=== PATIENT | male | born 1935 | race Caucasian/White ===

== ENCOUNTER 2018-08-01 08:35 | Emergency (ER) | payer MEDICARE ==
[2018-08-01 08:52] VITALS: BP 129/77
--- NOTE | 2018-08-01 09:35 | ED ---
GI/ HPI - HPI Summary HPI Summary: 82 yr old male with the complaint of low abdominal cramps that come and go, but are totally relieved with diarrhea. He has not seen blood. He states that he has had about 4 episodes of diarrhea, watery, and mattson in color for the past four days. He denies fever, chills, feeling ill. He feels fine otherwise. He has no cramps or pain at this point. No antibiotic use in past couple months. No travel. Last colonoscopy he states was about five years ago and it was ok per the patient, no polyps or tumors found. - History of Current Complaint Chief Complaint: UCGI Time Seen by Provider: 08/01/18 09:04 Stated Complaint: DIARRHEA, STOMACH CRAMPS Pain Intensity: 0 - Allergy/Home Medications Allergies/Adverse Reactions: Allergies Allergy/AdvReac Type Severity Reaction Status Date / Time No Known Allergies Allergy Verified 08/01/18 08:47 PMH/Surg Hx/FS Hx/Imm Hx Endocrine/Hematology History: Denies: Hx Diabetes, Hx Systemic Lupus Erythematosus Cardiovascular History: Reports: Hx Hypertension Denies: Hx Congestive Heart Failure History: Denies: Hx Dialysis, Hx Renal Disease Musculoskeletal History: Denies: Hx Rheumatoid Arthritis - Cancer History Hx Chemotherapy: No - Surgical History Surgery Procedure, Year, and Place: Right Knee Replacement Infectious Disease History: No Infectious Disease History: Denies: Traveled Outside the [place] in Last 30 Days - Family History Known Family History: Positive: None - Social History Occupation: Works From/At Home Alcohol Use: None Substance Use Type: Reports: None Smoking Status (MU): Former Smoker Review of Systems Constitutional: Negative Positive: Diarrhea All Other Systems Reviewed And Are Negative: Yes Physical Exam Triage Information Reviewed: Yes Vital Signs On Initial Exam: Initial Vitals Temp Pulse Resp BP Pulse Ox 98.9 F 78 16 129/77 98 08/01/18 08:49 08/01/18 08:49 08/01/18 08:49 08/01/18 08:49 08/01/18 08:49 Vital Signs Reviewed: Yes Appearance: Positive: Well-Appearing, No Pain Distress Skin: Positive: Warm Head/Face: Positive: Normal Head/Face Inspection Eyes: Positive: EOMI ENT: Positive: Pharynx normal Neck: Positive: Nontender Respiratory/Lung Sounds: Positive: Clear to Auscultation, Breath Sounds Present Cardiovascular: Positive: RRR. Negative: Murmur Abdomen Description: Positive: Nontender, Soft Musculoskeletal: Positive: Strength/ROM Intact Neurological: Positive: Sensory/Motor Intact, Alert, Oriented to Person Place, Time, CN Intact II-III Psychiatric: Positive: Normal - Mason Coma Scale Best Eye Response: 4 - Spontaneous Best Motor Response: 6 - Obeys Commands Best Verbal Response: 5 - Oriented Coma Scale Total: 15 Diagnostics - Vital Signs Vital Signs Temp Pulse Resp BP Pulse Ox 08/01/18 08:49 98.9 F 78 16 129/77 98 - Laboratory Lab Statement: Any lab studies that have been ordered have been reviewed, and results considered in the medical decision making process. GIGU Course/Dx - Course Course Of Treatment: 82 yr old male with diarrhea four days. Heme neg on test. Stool culture and cdiff sent. OK home follow upwith pmd. To ER for any persistent abdominal pain - Diagnoses Provider Diagnoses: Diarrhea Discharge - Sign-Out/Discharge Documenting (check all that apply): Patient Departure All imaging exams completed and their final reports reviewed: No Studies - Discharge Plan Condition: Good Disposition: HOME Patient Education Materials: Acute Diarrhea (ED) Referrals: Joshua Duran MD [Primary Care Provider] - 2 Days - Billing Disposition and Condition Condition: GOOD Disposition: Home
== END 2018-08-01 10:05 | disposition home or self-care (01) ==
LOC: UCCORT 08:35
DX: R19.7 Diarrhea, unspecified (principal); R10.30 Lower abdominal pain, unspecified; Z87.891 Personal history of nicotine dependence; Z96.651 Presence of right artificial knee joint
CPT/HCPCS: 82270; 87045; 87046; 87077; 87899; 99211; G0463

== ENCOUNTER 2019-01-12 08:37 | Emergency (ER) | payer MEDICARE ==
--- NOTE | 2019-01-12 08:52 | UC ---
Ear Complaint HPI - HPI Summary HPI Summary: decrease hearing---has pressure and ringing in right ear--no fevers, sore throat slight nasal drainage - History of Current Complaint Chief Complaint: UCEar Stated Complaint: RT EAR COMPLAINT Time Seen by Provider: 01/12/19 08:39 Hx Obtained From: Patient Onset/Duration: Gradual Onset, Lasting Days Severity Initially: Mild Severity Currently: Mild Aggravating Factors: Nothing Alleviating Factors: Nothing Associated Signs/Symptoms: Positive: Hearing Loss - Allergies/Home Medications Allergies/Adverse Reactions: Allergies Allergy/AdvReac Type Severity Reaction Status Date / Time No Known Allergies Allergy Verified 01/12/19 08:43 PMH/Surg Hx/FS Hx/Imm Hx Endocrine History: Dyslipidemia Cardiovascular History: Hypertension GI/ History: Gastroesophageal Reflux - Surgical History Surgical History: Yes Surgery Procedure, Year, and Place: Right Knee Replacement - Family History Known Family History: Positive: None - Social History Occupation: Retired Lives: With Family Alcohol Use: None Substance Use Type: None Smoking Status (MU): Former Smoker When Did the Patient Quit Smoking/Using Tobacco: 20 years ago Review of Systems All Other Systems Reviewed And Are Negative: Yes Constitutional: Positive: Negative Skin: Positive: Negative Eyes: Positive: Negative ENT: Positive: Ear Ache, Nasal Discharge Respiratory: Positive: Negative Cardiovascular: Positive: Negative Gastrointestinal: Positive: Negative Genitourinary: Positive: Negative Motor: Positive: Negative Neurovascular: Positive: Negative Musculoskeletal: Positive: Negative Neurological: Positive: Negative Psychological: Positive: Negative Is Patient Immunocompromised?: No Physical Exam Triage Information Reviewed: Yes Appearance: Well-Appearing, No Pain Distress, Well-Nourished Vital Signs Reviewed: Yes Eye Exam: Normal Eyes: Positive: Conjunctiva Clear ENT Exam: Normal ENT: Positive: Normal ENT inspection, Hearing grossly normal, Pharynx normal, Uvula midline, Other - both TM occluded. Negative: Nasal congestion, Nasal drainage, Tonsillar swelling, Trismus, Muffled voice, Hoarse voice, Dental tenderness, Sinus tenderness Dental Exam: Normal Neck exam: Normal Neck: Positive: Supple, Nontender, No Lymphadenopathy Respiratory Exam: Normal Respiratory: Positive: Chest non-tender, No respiratory distress, No accessory muscle use Cardiovascular Exam: Normal Cardiovascular: Positive: RRR, Pulses Normal, Brisk Capillary Refill Musculoskeletal Exam: Normal Musculoskeletal: Positive: Strength Intact, ROM Intact, No Edema Neurological Exam: Normal Neurological: Positive: Alert, Muscle Tone Normal Psychological Exam: Normal Skin Exam: Normal Re-Evaluation - Re-Evaluation First Eval Change: Improved - large amount of cerumen removed from both ears---patient reports relief for symptoms-- Ear Complaint Course/Dx - Course Course Of Treatment: avoid q-tips and soap in ears follow with pcp rpn - Differential Dx/Diagnosis Provider Diagnosis: Bilateral impacted cerumen Discharge - Sign-Out/Discharge Documenting (check all that apply): Patient Departure All imaging exams completed and their final reports reviewed: No Studies - Discharge Plan Condition: Stable Disposition: HOME Patient Education Materials: Cerumen Impaction (ED) Referrals: Joshua Duran MD [Primary Care Provider] - If Needed - Billing Disposition and Condition Condition: STABLE Disposition: Home - Attestation Statements Provider Attestation: I was available for consult. This patient was seen by the [facility]. The patient was not presented to , seen by or examined by ca -Jaz Machuca MD
[2019-01-12 08:53] VITALS: BP 143/72
== END 2019-01-12 10:10 | disposition home or self-care (01) ==
LOC: UCCORT 08:37
DX: H61.23 Impacted cerumen, bilateral (principal); I10 Essential (primary) hypertension
CPT/HCPCS: 99213; G0463

== ENCOUNTER 2019-01-22 14:02 | Emergency (ER) | payer MEDICARE ==
[2019-01-22 15:27] VITALS: BP 124/70
--- NOTE | 2019-01-22 15:43 | UC ---
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 Abdominal cramping too. No blood in stool. Has been taking immodium OTC with no releif. Appetite poor, pt states anything goes in comes right out. Fluids staying down ok. No recent abx." -he was here in Jul w/ similar sx x 4 days w/ cramping. no f/c/. no travel. doesnt recall last colonscopy but thinks he is UTD. Per Jul OV note, he had scope ~ 5 yr prior w/o any polyps or tumors. he says this sounds about right. no abx. no raw or uncooked seafood or meat. no sick contacts. brown in color - History Of Current Complaint Chief Complaint: UCGI Stated Complaint: DIARRHEA Time Seen by Provider: 01/22/19 15:36 Pain Intensity: 0 - Allergies/Home medications Allergies/Adverse Reactions: Allergies Allergy/AdvReac Type Severity Reaction Status Date / Time No Known Allergies Allergy Verified 01/22/19 15:26 Home Medications: Home Medications Flecainide TAB* [Tambocor TAB*] 100 mg PO BID 01/22/19 [History] Metoprolol Tartrate TAB* [Lopressor TAB*] 12.5 mg PO BID 01/22/19 [History Confirmed 01/22/19] Vit A/Vit C/Vit E/Zinc/Copper [Preservision Areds Softgel] 1 each PO BID [History Confirmed 01/22/19] PMH/Surg Hx/FS Hx/Imm Hx Previously Healthy: Yes Endocrine History: Dyslipidemia Cardiovascular History: Hypertension - Surgical History Surgical History: Yes Surgery Procedure, Year, and Place: Right Knee Replacement - Family History Known Family History: Positive: Hypertension - Social History Alcohol Use: None Substance Use Type: None Smoking Status (MU): Former Smoker Have You Smoked in the Last Year: No When Did the Patient Quit Smoking/Using Tobacco: 20 years ago Review of Systems All Other Systems Reviewed And Are Negative: Yes Constitutional: Positive: Negative. Negative: Fever, Chills, Fatigue Skin: Positive: Negative Eyes: Positive: Negative ENT: Positive: Negative Respiratory: Positive: Negative Cardiovascular: Positive: Negative Gastrointestinal: Positive: Abdominal Pain, Diarrhea. Negative: Vomiting, Nausea Genitourinary: Positive: Negative Motor: Positive: Negative Neurovascular: Positive: Negative Musculoskeletal: Positive: Negative Neurological: Positive: Negative Psychological: Positive: Negative Is Patient Immunocompromised?: No Physical Exam Triage Information Reviewed: Yes Appearance: Well-Appearing, No Pain Distress, Well-Nourished - very pleasant Vital Signs: Initial Vital Signs Temp 98.9 F 01/22/19 15:21 Pulse 78 01/22/19 15:21 Resp 18 01/22/19 15:21 BP 124/70 01/22/19 15:21 Pulse Ox 98 01/22/19 15:21 Vital Signs Reviewed: Yes Eye Exam: Normal ENT Exam: Normal ENT: Positive: Pharynx normal - mmm Neck exam: Normal Neck: Positive: Supple, Nontender, No Lymphadenopathy Respiratory Exam: Normal Respiratory: Positive: Lungs clear, Normal breath sounds, No respiratory distress, No accessory muscle use Cardiovascular Exam: Normal Cardiovascular: Positive: RRR Abdominal Exam: Normal Abdomen Description: Positive: Nontender, No Organomegaly, Soft. Negative: CVA Tenderness (R), CVA Tenderness (L), Distended, Guarding, McBurney's Point Tenderness, Peritoneal Signs, Pulsatile Mass, Splenomegaly Bowel Sounds: Positive: Present Musculoskeletal Exam: Normal Neurological Exam: Normal Psychological Exam: Normal Skin Exam: Normal Skin: Negative: Rashes Bleed Course/Dx - Course Course Of Treatment: -stool for occult blood, stool cx, c diff, vibrio -cont w/ fluids. hemodynamically stable. -cont hydration -f/u in 2-5 days w/ PCP, to ER with change or wosening sx. -he understood me well and is agreeable w/ plan. -similar sx from Jul 2018 with previous self limiting disease upon questioning pt. - Differential Dx/Diagnosis Differential Diagnosis/HQI/PQRI: Other - diarrhea Provider Diagnosis: Diarrhea Discharge - Sign-Out/Discharge Documenting (check all that apply): Patient Departure All imaging exams completed and their final reports reviewed: No Studies - Discharge Plan Condition: Stable Disposition: HOME Patient Education Materials: Acute Diarrhea (ED) Referrals: Joshua Duran MD [Primary Care Provider] - 5 Days Additional Instructions: -Avoid drinking the caffeiinated drinks like mountain dew as that can make your symptoms worse. Please go to the ER if you develop lightheaded or dizziness or symptoms worsen prior to your PCP follow up. - Billing Disposition and Condition Condition: STABLE Disposition: Home
== END 2019-01-22 16:13 | disposition home or self-care (01) ==
LOC: UCCORT 14:02
DX: R19.7 Diarrhea, unspecified (principal); R10.9 Unspecified abdominal pain; E78.5 Hyperlipidemia, unspecified; I10 Essential (primary) hypertension; Z87.891 Personal history of nicotine dependence
CPT/HCPCS: 99211; G0463